=== PATIENT | male | born 1975 | race Caucasian/White ===

== ENCOUNTER → 2019-09-06 10:05 | Outpatient (CLI) | payer BC, SELFPAY ==
--- NOTE | 2019-09-06 10:06 | RAD_ITS ---
STUDY: X-RAY - RIGHT ELBOW REASON FOR EXAM: Male, 44 years old. RIGHT ELBOW PAIN X YEARS, PAIN IS INCREASING TECHNIQUE: 3 view(s) of the elbow. COMPARISON: None. FINDINGS: Normal visualized radius and ulna. Small spurs on the medial and lateral humeral epicondyles. Mild radiocapitellar and ulnar trochlear arthrosis. The soft tissue structures are unremarkable. No demonstrated fracture or joint effusion. RAD/Elbow min 3 Views IMPRESSION: Mild degenerative changes, no acute findings Electronically Signed: Ari Persaud MD at 7:25 EST , Service support ,
== END ==
PROVIDERS: Referring Provider Orthopaedic Surgery; Visit Provider Orthopaedic Surgery
DX: M25.521 Pain in right elbow (principal)
CPT/HCPCS: 73080

== ENCOUNTER → 2020-02-07 11:14 | Outpatient (CLI) | payer BC, SELFPAY ==
[2020-02-07 13:56] LABS: ALB/GLOB Ratio 0.8 RATIO (0.9-2.4); AST(SGOT) 25 U/L (15-37); Alanine Aminotransfer ALT/SGPT 51 U/L (16-61); Albumin, Serum 3.7 g/dL (3.2-5.0); Alkaline Phosphatase 96 U/L (45-117); Anion Gap 5 (5-15); BUN 18 mg/dL (7-18); Calcium,Total 8.7 mg/dL (8.5-10.1); Chloride 105 mmol/L (98-107); Cholesterol 175 mg/dL (200); Creatinine, Serum 0.95 mg/dL (0.70-1.30); EST Glomerular Filtration Rate 92 mL/min (>60); Est Glom Filt Rate - Afr Amer 111 mL/min (>60); Globulin 4.4 g/dL (2.2-4.2); Glucose 96 mg/dL (74-106); High Density Lipoprotein 27 mg/dL; Potassium 3.8 mmol/L (3.5-5.1); Protein, Total 8.1 g/dL (6.4-8.2); Sodium Level 138 mmol/L (136-145); Triglycerides 506 mg/dL
== END ==
PROVIDERS: PCP Family Medicine; Referring Provider Family Medicine; Visit Provider Family Medicine
DX: Z13.1 Encounter for screening for diabetes mellitus (principal); Z13.220 Encounter for screening for lipoid disorders
CPT/HCPCS: 36415; 80053; 80061